=== PATIENT | female | born 1970 | race Caucasian/White ===

== ENCOUNTER 2018-05-20 11:23 | Emergency (ER) | payer OTHER ==
[~2018-05-20] VITALS: Ht 160 cm; Wt 47.2 kg
[~2018-05-20 11:23] MED LIST: CIPRO500 MG PO; FLAGYL500 MG PO; INDERAL LA60 M1 PO; LISINOPRIL10 MG PO; NEURONTIN 300300 M1 PO; NORCO 5-325 TA1 EACH PO; PEPCID40 MG PO; PHENERGAN 25 MG25 M1 PO; PROPRANOLOL 1010 MG PO; PROTONIX40 M1 PO; TOPROL XL25 MG; TRAMADOL 50 MG50 MG; ULTRAM 50MG TAB50 MG PO; VITAMIN D 5050000 I1
[2018-05-20] MEDS ORDERED: MS CONTIN15 MG PO (11:35)
[2018-05-20 12:24] LABS: ABSOLUTE BASOPHILS 0.1 thou/uL (0.0-0.2); ABSOLUTE LYMPHOCYTES 2.9 thou/uL (0.8-5.3); ABSOLUTE MONOCYTES 0.7 thou/uL (0.0-1.2); ABSOLUTE NEUTROPHILS 6.3 thou/uL (1.6-8.1); BASOPHILS 0.7 %; EOSINOPHILS 0.4 %; HEMATOCRIT 42.2 % (37.0-47.0); HEMOGLOBIN 14.3 gm/dL (12.0-15.0); MCH 31.1 pg (26.0-34.0); MCHC 33.9 g/dL (28.0-37.0); MCV 91.7 fL (80.0-100.0); MPV 7.4 fl. (7.2-11.1); NUCLEATED RBCS 0 /100WBC; PLATELET COUNT* 285 thou/uL (150-400); POLYS 62.9 %; RDW-CV 13.3 % (10.5-14.5)
[2018-05-20 12:34] LABS: ANION GAP 4 mmol/L (7-16); BUN 22 mg/dL (7-18); CALCIUM 9.6 mg/dL (8.5-10.1); CHLORIDE 102 mmol/L (98-107); CO2 32 mmol/L (21-32); CREATININE 0.9 mg/dL (0.6-1.3); GLUCOSE 96 mg/dL (70-99); POTASSIUM 4.4 mmol/L (3.5-5.1); SODIUM 138 mmol/L (136-145)
[2018-05-20 12:48] LABS: ALBUMIN 3.8 g/dL (3.4-5.0); ALKALINE PHOSPHATASE 77 U/L (46-116); SGOT 12 U/L (15-37); SGPT 36 U/L (30-65); TOTAL BILIRUBIN 0.3 mg/dL (<0.1-1.0); TOTAL PROTEIN 7.4 g/dL (6.4-8.2); TROPONIN-I LEVEL <0.06 ng/mL (<0.06)
[2018-05-20] MEDS ORDERED: TESSALON PERLE100 MG PO (13:09)
[2018-05-20] MEDS ORDERED: PROAIR HFA8.5 GM INH (13:09)
[2018-05-20] MEDS ORDERED: PROMETHAZINE V473 ML PO (13:09)
[2018-05-20] MEDS ORDERED: ZPAK PO (13:09)
[2018-05-20] MEDS ORDERED: MEDROLDOSEPACK PO (13:09)
[2018-05-20 13:24] VITALS: BP 110/70
--- NOTE | 2018-05-22 11:10 | EKG ---
[place] [address] ELECTROCARDIOGRAM REPORT Name: WILLA BINGHAM Room: [facility]#: [id number] Admission: 05/20/18 Attend Phys: Discharge: 05/20/18 Date of : 74 Report #: [id number] THIS REPORT FOR: //name// [facility] ED Test Date: 2018-05-20 Test Time: 12:04:03 Pat Name: WILLA BINGHAM Department: Room: Gender: F [employer]: Deni KLEIN : 1970 Requested By: Tami Cooper Order Number: [id number] MD: Ulysses Espinal Measurements Intervals [place] Rate: 66 P: 71 LA: 148 QRS: 53 QRSD: 81 T: 51 QT: 385 QTc: 404 Interpretive Statements Sinus rhythm Compared to ECG 11/20/2016 17:58:17 Sinus tachycardia no longer present Early repolarization no longer present Possible ischemia no longer present Electronically Signed On 05-22-2018 11:09:55 LPTA by Ulysses Espinal [email or web address] <ELECTRONICALLY SIGNED> By: Ulysses Espinal MD, FACC 05/22/18 1109 1204 [id number] Ulysses Espinal MD, [facility] /EPI
== END 2018-05-20 13:25 | disposition home or self-care (01) ==
LOC: M.ERS 11:23
PROVIDERS: Physician Assistant
DX: J20.9 Acute bronchitis, unspecified (principal); I10 Essential (primary) hypertension; F17.210 Nicotine dependence, cigarettes, uncomplicated; Z88.5 Allergy status to narcotic agent; Z90.710 Acquired absence of both cervix and uterus; Z90.49 Acquired absence of other specified parts of digestive tract

== ENCOUNTER 2019-12-04 09:10 | Emergency (ER) | payer BC ==
[~2019-12-04] VITALS: Ht 160 cm; Wt 53.1 kg
[~2019-12-04 09:10] MED LIST changes: +MEDROLDOSEPACK PO; +MS CONTIN15 MG PO; +PROAIR HFA8.5 GM INH; +PROMETHAZINE V473 ML PO; +TESSALON PERLE100 MG PO; +ZPAK PO
[2019-12-04] MEDS ORDERED: ULTRAM 50MG TAB50 MG PO (10:12)
[2019-12-04] MEDS ORDERED: IBUPROFEN 600600 M1 PO (10:12)
[2019-12-04] MEDS ORDERED: AUGMENTIN 500-1 EACH PO (10:12)
[2019-12-04 10:37] VITALS: BP 128/80
== END 2019-12-04 10:40 | disposition home or self-care (01) ==
LOC: M.ERS 09:10
DX: H60.12 Cellulitis of left external ear (principal); R59.0 Localized enlarged lymph nodes; I10 Essential (primary) hypertension; F17.210 Nicotine dependence, cigarettes, uncomplicated; Z90.710 Acquired absence of both cervix and uterus; Z90.49 Acquired absence of other specified parts of digestive tract; Z88.6 Allergy status to analgesic agent

== ENCOUNTER 2020-01-08 12:07 | Emergency (ER) | payer BC ==
[~2020-01-08] VITALS: Ht 180.3 cm; Wt 52.2 kg
[~2020-01-08 12:07] MED LIST changes: +AUGMENTIN 500-1 EACH PO; +IBUPROFEN 600600 M1 PO
[2020-01-08] MEDS ORDERED: VALSARTAN40 MG PO (12:23)
[2020-01-08] MEDS ORDERED: TRAMADOL 50 MG50 MG PO (15:50)
[2020-01-08 16:06] VITALS: BP 115/70
== END 2020-01-08 16:07 | disposition home or self-care (01) ==
LOC: M.ERS 12:07
DX: M25.552 Pain in left hip (principal); M54.5 Low back pain; I10 Essential (primary) hypertension; F17.210 Nicotine dependence, cigarettes, uncomplicated; Z88.5 Allergy status to narcotic agent; Z90.49 Acquired absence of other specified parts of digestive tract; Z90.710 Acquired absence of both cervix and uterus

== ENCOUNTER 2020-07-11 16:39 | Emergency (ER) | payer BC ==
[~2020-07-11] VITALS: Ht 160 cm; Wt 50.8 kg
[~2020-07-11 16:39] MED LIST changes: +TRAMADOL 50 MG50 MG PO; +VALSARTAN40 MG PO
[2020-07-11] MEDS ORDERED: LISINOPRIL10 MG PO (16:53)
[2020-07-11] MEDS ORDERED: BACLOFEN 10MG T10 MG PO (18:07)
[2020-07-11 18:15] VITALS: BP 163/70
== END 2020-07-11 18:16 | disposition home or self-care (01) ==
LOC: M.ERS 16:39
DX: M54.16 Radiculopathy, lumbar region (principal); M53.3 Sacrococcygeal disorders, not elsewhere classified; I10 Essential (primary) hypertension; F17.210 Nicotine dependence, cigarettes, uncomplicated; Z90.49 Acquired absence of other specified parts of digestive tract; Z88.5 Allergy status to narcotic agent; Z90.710 Acquired absence of both cervix and uterus